=== PATIENT | female | born 1970 | race Caucasian/White ===

== ENCOUNTER 2021-12-18 15:31 | Emergency (ER) | payer MEDICAID ==
[~2021-12-18] VITALS: Ht 165.1 cm; Wt 92.1 kg
[2021-12-18 16:02] VITALS: BP 153/91
[2021-12-18] MEDS ORDERED: TETANUS-DIPTH-ACEL PERTUSSIS 0.5ML SYR Tdap IM ONE (16:15)
[2021-12-18] MEDS ORDERED: RABIES VACCINE (PCEC)/PF 2.5 UNITS IM ONE (16:15)
[2021-12-18] MEDS ORDERED: DOXY100C2 PO (16:19)
[2021-12-18] MEDS ORDERED: RABIES VIRUS VACCINE, HDC 2.5 UNIT/ML ML IM ONE (17:05)
== END 2021-12-18 17:22 | disposition home or self-care (01) ==
LOC: ER 15:31
DX: S61.051A Open bite of right thumb without damage to nail, initial encounter (principal); I10 Essential (primary) hypertension; F17.210 Nicotine dependence, cigarettes, uncomplicated; Z88.0 Allergy status to penicillin; W53.01XA Bitten by mouse, initial encounter; Y93.89 Activity, other specified; Y92.89 Other specified places as the place of occurrence of the external cause; Y99.8 Other external cause status
CPT/HCPCS: 90471; 90472; 90675; 90715